=== PATIENT | male | born 1980 | race Caucasian/White ===

== ENCOUNTER 2024-07-01 08:07 | Emergency (ER) | payer BC, SELFPAY ==
[2024-07-01 08:07] VITALS: BP 145/98; PULSE 110; RESP 18; TEMP 36.8; O2SAT 98; BMI 30.8
[2024-07-01 08:36] LABS: Bacteria 0 SEEN /hpf (None Seen); Mucous, Urine 0 SEEN /hpf (<or=2+); Squamous Epithelial Cells - UA 0 SEEN /hpf (0-5); White Blood Cells 0 SEEN /hpf (0-5)
[2024-07-01 08:37] LABS: Color, Urine Yellow (Yellow); Glucose, Dipstick Normal (Normal); Ketone-Dipstick Negative (Negative); Leukocyte Esterase-Dipstick 25 /ul (Negative); Nitrite-Dipstick Negative (Negative); Occult Blood-Urine Negative /ul (Negative); Protein-Dipstick 15 mg/dl (Negative); Urine Bilirubin Dipstick Negative (Negative); Urine Clarity Clear (Clear); Urine Urobilinogen Normal (Normal)
[2024-07-01 08:37] LABS: Absolute Lymphocyte Count 2.15 X10^3/uL (0.83-4.51); Absolute Neutrophil Count 2.7 X10^3/uL (2.0-7.7); Basophil# 0.09 X10^3/uL; Basophil% 1.6 % (0-1); Eosinophil# 0.14 X10^3/uL; Eosinophils% 2.5 % (0-5); Hematocrit 46.2 % (40-54); Hemoglobin 16.6 g/dL (13.0-16.5); Lymphocyte # 2.15 X10^3/ul (0.83-4.51); Lymphocyte % 38.4 % (19-41); Mean Corp Hgb Conc 35.9 g/dL (32-36); Mean Corpuscular Hgb 30.6 pg (27.0-32.0); Mean Corpuscular Volume 85.2 fL (80-94); Mean Platelet Vol. 10.3 fl (6.2-12.0); Monocyte# 0.54 X10^3/uL; Monocyte% 9.6 % (0-10); NRBC Flagged by Analyzer 0 % (0-5); Neutrophil # 2.66 X10^3/uL (2.7-7.7); Neutrophil % 47.5 % (47-70); Platelet Count 207 K/mm3 (150-450); RBC Distribution Width CV 12.1 % (11.6-14.6); RBC Distribution Width SD 37.4 fl (35.1-43.9); Red Blood Count 5.42 M/mm3 (4.6-6.2); White Blood Count 5.6 K/mm3 (4.4-11.0)
--- NOTE | 2024-07-01 08:43 | CT_ITS ---
PROCEDURE: ABDOMEN/PELVIS WITH CONTRAST REASON FOR EXAM: 43-year-old male, right-sided abdominal pain, change in stool and weight loss x3 months. TECHNIQUE: Abdomen and pelvis CT with intravenous contrast. Oral contrast was also used. IV CONTRAST: Administered. COMPARISON: None. FINDINGS: Lung bases: The heart is normal in size. Bibasilar atelectasis. Liver: The liver is normal in size without focal hepatic mass. The major portal veins are patent. No biliary ductal dilation. Gallbladder: No radiopaque stones within the gallbladder. Spleen: Unremarkable. Pancreas: Unremarkable. Adrenals: Unremarkable adrenal glands. Kidneys: Bilateral renal cysts and additional hypodensities, too small to characterize. No hydronephrosis or nephrolithiasis. Bladder: The urinary bladder is mildly distended with diffuse bladder wall thickening. Reproductive Organs: The prostate is mildly enlarged. Bowel: The bowel loops are normal in caliber. No obvious bowel mass visualized by CT imaging. No ascites or pneumoperitoneum. Normal appendix. Lymph nodes: Enlarged anterior right mesenteric lymph nodes. No pelvic or retroperitoneal lymphadenopathy. Vasculature: Major vascular structures are unremarkable. Bones: No aggressive osseous lesions. CT/Abdomen/Pelvis WITH Contrast IMPRESSION: 1. No acute abdominopelvic finding. No obvious bowel mass visualized by CT jeremi ging, however occult bowel neoplasm remains likely. Enlarged right anterior mesenteric lymphadenopathy, indeterminate in si gnificance. 2. Diffuse bladder wall thickening, which may be secondary to incomplete disten tion or developing urinary tract infection. Correlation with urinalysis recommended. One or more dose reduction techniques were used (e.g., Automated exposure contr ol, adjustment of the mA and/or kV according to patient size, use of iterative reconstruction technique). Reading Location: [id number]
--- NOTE | 2024-07-01 08:45 | EDS_ITS ---
HPI HPI - GI History of Present Illness Chief Complaint: Abd Pain Informant: patient and spouse/S.O. Narrative Narrative: 43-year-old male presenting to the emergency room with abdominal pain. Patient states over the past several months he has had difficulty moving his bowels having to strain quite a bit. He notes that the stools are thicker than a pencil but about maybe the size of your average highlighter. He states that is a big change for him. He was scheduled for colonoscopy with Dr. Crain but he became ill with fever and had a day and a half of gastroenteritis like symptoms. He states the colonoscopy was postponed because of the illness. During 1 episode of straining he felt pain on the right side of his abdomen that has continued. He saw his doctor who felt that it was more muscular strain. He states symptoms have continued. He notes a 10 pound weight loss during his gastroenteritis episode. No reported fevers other than that. He notes that when he urinates the stream seems to go to the side. PFSH PFSH Allergy/AdvReac Type Severity Reaction Status Date / Time No Known Allergies Allergy Verified 07/01/24 08:07 Social History Smoking Status: Never smoker ROS ROS ED Constitutional Constitutional ED: Denies chills or weight loss Eyes Eyes: Denies change in vision or diplopia ENT ENT ED: Denies ear pain, rhinorrhea or sore throat Cardiovascular Cardiovascular: Denies chest pain, orthopnea, palpitations or racing heartbeat Respiratory/Chest Respiratory/Chest: Denies cough, dyspnea or orthopnea Gastrointestinal Gastrointestinal: Reports abdominal pain; Denies nausea or vomiting Genitourinary Genitourinary ED: Reports other Details: See history of present illness ; Denies dysuria, hematuria or urinary frequency Musculoskeletal Musculoskeletal: Denies arthralgias or myalgias Integumentary Denies abscess or rash Neurologic Neurologic: Denies headache(s) or weakness Psychiatric Psychiatric: Denies anxiety, depression, suicidal ideation or suicidal thoughts Endocrine Endocrinology: Denies polydipsia, polyphagia or polyuria Allergic/Immunologic Allergic/Immunologic ED: Denies mouth swelling, tongue swelling or urticaria EXAM Physical Exam Const Vital Signs: 07/01/24 08:07 07/01/24 10:25 07/01/24 12:00 Temperature 98.3 F Temperature Source Oral Pulse Rate 110 H 72 72 Respiratory Rate 18 15 14 Blood Pressure 145/98 H 124/69 H 120/70 Blood Pressure Mean 113 87 86 Pulse Ox 98 98 98 Oxygen Delivery Method Room Air Room Air 07/01/24 12:37 Temperature 97.4 F L Temperature Source Pulse Rate 88 Respiratory Rate 15 Blood Pressure 124/69 H Blood Pressure Mean 87 Pulse Ox 99 Oxygen Delivery Method Positive well nourished and well developed General Appearance ED: well developed HEENT Reports normocephalic, head/scalp atraumatic and moist mucous membranes Eyes PERRL and EOMs intact bilaterally Neck no lymphadenopathy, supple and no JVD Resp normal respiratory effort and clear to auscultation bilaterally Cardio regular rate, regular rhythm and no murmurs GI normal to inspection, nondistended, normoactive bowel sounds and non-tender Palpation: soft Narrative: exam shows a slight firmness and tenderness just anterior to the anus. There is no erythema no swelling. Back/Spine no CVA tenderness and normal ROM Extremity normal to inspection General Extremety ED: Negative for edema General Extremity: Negative for edema Neuro oriented x3 and CN's II-XII intact bilaterally Sensorium / Orientation: alert Motor Exam: strength 5/5 throughout Psych mental status grossly normal Mood & Affect: Negative for depressed or tearful Skin no rashes or lesions noted and no wounds MDM MDM MDM Narrative Medical decision making narrative: Differential diagnosis includes but not limited to colitis prostatitis UTI malignancy muscular strain Basic blood work shows a white count of 5.6 hemoglobin 16.6. BMP liver enzymes lipase normal urinalysis is normal. CT of the abdomen pelvis was obtained with oral and IV contrast. Ample time was allowed to have the contrast going to the large colon. No evidence of malignancy was noted. Please see radiologist read for full details. I spoke with the patient regarding the radiologist reading blood work. Unguinal recommend that he follow-up for colonoscopy. He may wish to follow-up with urology as well. History & Record Review Discussion w/independent historian: Patient and Significant other Lab Data Attestation: I reviewed the patient's lab results. Labs: Laboratory Results - last 24 hr 07/01/24 07/01/24 08:27 08:31 WBC 5.6 RBC 5.42 Hgb 16.6 H Hct 46.2 MCV 85.2 MCH 30.6 MCHC 35.9 RDW Std Deviation 37.4 RDW Coeff of Chandan 12.1 Plt Count 207 MPV 10.3 Immature Gran % (Auto) 0.400 Neut % (Auto) 47.5 Lymph % (Auto) 38.4 [place] % (Auto) 9.6 Eos % (Auto) 2.5 Baso % (Auto) 1.6 H Absolute Neuts (auto) 2.7 Absolute Lymphs (auto) 2.15 Nucleated RBC % 0 Sodium 141 Potassium 4.1 Chloride 110 H Carbon Dioxide 25.0 Anion Gap 6 BUN 14 Creatinine 1.20 Estim Creat Clear Calc 93.93 Est GFR (MDRD) Af Amer 85 Est GFR (MDRD) Non-Af 70 BUN/Creatinine Ratio 11.7 Glucose 100 Calcium 9.1 Total Bilirubin 0.30 Direct Bilirubin 0.13 AST 32 ALT 35 Alkaline Phosphatase 112 Total Protein 7.3 Albumin 3.8 Globulin 3.5 Lipase 45 L Urine Color Yellow Urine Clarity Clear Urine pH 8.0 Ur Specific [place] 1.010 Urine Protein 15 H Urine Glucose (UA) Normal Urine Ketones Negative Urine Occult Blood Negative Urine Nitrite Negative Urine Bilirubin Negative Urine Urobilinogen Normal Ur Leukocyte Esterase 25 H Urine RBC 0 SEEN Urine WBC 0 SEEN Ur Squamous Epith Cells 0 SEEN Urine Bacteria 0 SEEN Urine Mucus 0 SEEN Radiography Diagnostic Testing: Clinical Impression(s) from Imaging Studies Abdomen/Pelvis CT 07/01/24 08:43 IMPRESSION: 1. No acute abdominopelvic finding. No obvious bowel mass visualized by CT imaging, however occult bowel neoplasm remains likely. Enlarged right anterior mesenteric lymphadenopathy, indeterminate in significance. 2. Diffuse bladder wall thickening, which may be secondary to incomplete distention or developing urinary tract infection. Correlation with urinalysis recommended. One or more dose reduction techniques were used (e.g., Automated exposure control, adjustment of the mA and/or kV according to patient size, use of iterative reconstruction technique). Reading Location: [facility] Discharge Plan Triage Chief Complaint: Abd Pain ED Provider: Vladimir Carlos Dx/Rx/DC Orders Clinical Impression: Abdominal pain Instructions: Abdominal Pain Primary Care Provider: Mehdi Argueta Referrals: Juve Gaytan MD [Med Staff - Active Staff] - As soon as possible (For surgical evaluation/colonoscopy) Friend,Jason, DO [Med Staff - Active Staff] - As soon as possible (For gastroenterology evaluation) [facility] Doctor,Out of [Non-Staff] - Activity Restrictions/Additional Instructions: If you look out of town for a colorectal surgeon you may call [facility] colorectal surgeons Dr. Ish Welch Print Language: Malaysian Disposition Disposition: Home, Self Care Discharge Date/Time: 07/01/24 12:37
[2024-07-01 08:53] LABS: Anion Gap 6 (5-15); BUN 14 mg/dL (7-18); BUN/Creat Ratio 11.7 RATIO (10-20); Calcium,Total 9.1 mg/dL (8.5-10.1); Chloride 110 mmol/L (98-107); EST Glomerular Filtration Rate 70 mL/min (>60); Est Glom Filt Rate - Afr Amer 85 mL/min (>60); Estimated Creatinine Clearance 93.93 ml/min; Glucose 100 mg/dL (74-106); Potassium 4.1 mmol/L (3.5-5.1); Sodium Level 141 mmol/L (136-145)
[2024-07-01 09:11] LABS: AST(SGOT) 32 U/L (15-37); Alanine Aminotransfer ALT/SGPT 35 U/L (16-61); Albumin, Serum 3.8 g/dL (3.2-5.0); Alkaline Phosphatase 112 U/L (45-117); Bilirubin, Direct 0.13 mg/dL (0.00-0.30); Globulin 3.5 g/dL (2.2-4.2); Lipase 45 U/L (73-393); Protein, Total 7.3 g/dL (6.4-8.2)
[2024-07-01 10:25] VITALS: BP 124/69; PULSE 72; RESP 15; O2SAT 98
[2024-07-01 12:00] VITALS: BP 120/70; PULSE 72; RESP 14; O2SAT 98
[2024-07-01 12:06] LABS: Red Blood Cells-Urine 0 SEEN /hpf (0-5)
[2024-07-01 12:37] VITALS: BP 124/69; PULSE 88; RESP 15; TEMP 36.3; O2SAT 99
== END 2024-07-01 12:37 | disposition home or self-care (01) ==
PROVIDERS: Emergency Provider Emergency Medicine; PCP Family Medicine; Visit Provider Emergency Medicine
DX: R10.9 Unspecified abdominal pain (principal)
CPT/HCPCS: 74177; 80048; 80076; 81001; 83690; 85025; 99283; Q9967; A4216